=== PATIENT | male | born 1970 | race Caucasian/White ===

== ENCOUNTER 2019-04-10 19:38 | Emergency (ER) | payer BC ==
[~2019-04-10] VITALS: Ht 185.4 cm; Wt 90.7 kg
[2019-04-10] MEDS ORDERED: PANTOPRAZOLE SODIUM IV 40 MG in IV DEXTROSE 5% 100 ML IV ONE (20:15)
[2019-04-10 20:26] LABS: BASOPHILS # (AUTO) 0.1 K/uL (0.0-8.0); BASOPHILS % (AUTO) 0.6 % (0.0-2.0); EOSINOPHILS # (AUTO) 0.1 K/uL (0.0-0.7); EOSINOPHILS % (AUTO) 1.1 % (0.0-7.0); HEMATOCRIT 44.7 % (36.7-47.1); LYMPHOCYTES # (AUTO) 3.3 K/uL (20.0-40.0); LYMPHOCYTES % (AUTO) 40.7 % (20.5-51.5); MEAN CORPUSCULAR HEMOGLOBIN 30.1 uug (23.8-33.4); MEAN CORPUSCULAR HGB CONC 34 g/dL (32.5-36.3); MEAN CORPUSCULAR VOLUME 89.9 fL (73.0-96.2); MONOCYTES # (AUTO) 0.5 K/uL (2.0-10.0); MONOCYTES % (AUTO) 6.1 % (0.0-11.0); NEUTROPHILS # (AUTO) 4.2 K/uL (1.8-8.9); NEUTROPHILS % (AUTO) 51.5 % (38.5-71.5); PLATELET COUNT (AUTO) 229 K/uL (152-348); RED BLOOD CELL COUNT(AUTO) 4.97 MIL/uL (4.06-5.63); WHITE BLOOD COUNT (AUTO) 8.2 K/uL (3.6-10.2)
[2019-04-10] MEDS ORDERED: PANTOPRAZOLE SODIUM 40 MG VIAL ONE (20:26)
[2019-04-10 20:31] LABS: CREATININE 1.1 mg/dL (0.6-1.3); POTASSIUM 3.3 mmol/L (3.5-5.1)
[2019-04-10 20:38] LABS: BILIRUBIN,DIRECT 0.5 mg/dL (0.0-0.2); BILIRUBIN,TOTAL 1.4 mg/dL (0.2-1.0); TOTAL PROTEIN, SERUM 7.6 g/dL (6.4-8.2)
--- NOTE | 2019-04-10 21:30 | NUR ---
Per ERMD, cancel flow rate and administer bolus for Pepcid IV
--- NOTE | 2019-04-10 21:35 | NUR ---
Protonix IV complete at [id number]
--- NOTE | 2019-04-10 21:44 | NUR ---
Patient discharged to home in stable conditon. Written and verbal after care instructions given. Patient verbalizes understanding of instructions. Patient ambulated with stable gait.
[2019-04-10] MEDS ORDERED: POTASSIUM CHLORIDE 20 MEQ TAB.PRT.SR PO ONE (21:45)
[2019-04-10 22:10] VITALS: BP 148/83
== END 2019-04-10 21:44 | disposition home or self-care (01) ==
LOC: ER 19:44
DX: K76.0 Fatty (change of) liver, not elsewhere classified (principal); E87.6 Hypokalemia; R94.5 Abnormal results of liver function studies; R10.13 Epigastric pain; R10.11 Right upper quadrant pain; E78.00 Pure hypercholesterolemia, unspecified; I10 Essential (primary) hypertension; Z88.8 Allergy status to other drugs, medicaments and biological substances
CPT/HCPCS: 36415; 71045; 76705; 80048; 80076; 83690; 84484; 85025; 93005; 96365; 96366; 99284; C9113; J7060; 70030-TC; A4663